=== PATIENT | female | born 1985 ===

== ENCOUNTER 2017-01-22 16:39 | Emergency (ER) | payer SELFPAY ==
[~2017-01-22] VITALS: Ht 170.2 cm; Wt 154.2 kg
[2017-01-22] MEDS ORDERED: cloNIDine HCL 0.1 MG TAB ONE (16:55)
[2017-01-22] MEDS ORDERED: cloNIDine HCL 0.1 MG TAB PO ONE (17:00)
[2017-01-22 21:38] LABS: Urine RBC None Seen /hpf (0 - 4)
[2017-01-22 22:01] LABS: Urine Bilirubin Negative (Negative); Urine Blood Negative /uL (Negative); Urine Color Yellow (Yellow); Urine Glucose Normal (Normal); Urine Ketone Negative (Negative); Urine Mucus FEW (None Seen); Urine Nitrite Negative (Negative); Urine Squamous Epithelial Cell FEW /hpf (<5); Urine Urobilinogen Normal (Negative)
[2017-01-22 22:02] VITALS: BP 116/73
[2017-01-22] MEDS ORDERED: IBUPROFEN 600 MG TAB PO ONE (23:30)
[2017-01-22] MEDS ORDERED: CYCLOBENZAPRINE HCL 10 MG TAB PO ONE (23:30)
== END 2017-01-23 00:10 | disposition home or self-care (01) ==
LOC: ER 16:40
DX: S63.025A Dislocation of radiocarpal joint of left wrist, initial encounter (principal); S46.912A Strain of unspecified muscle, fascia and tendon at shoulder and upper arm level, left arm, initial encounter; S20.211A Contusion of right front wall of thorax, initial encounter; V43.52XA Car driver injured in collision with other type car in traffic accident, initial encounter; Y93.89 Activity, other specified; Y92.89 Other specified places as the place of occurrence of the external cause; Y99.8 Other external cause status; J45.909 Unspecified asthma, uncomplicated; I10 Essential (primary) hypertension; Z90.49 Acquired absence of other specified parts of digestive tract
CPT/HCPCS: 29125; 71101; 73030; 73110; 81001; 81025